=== PATIENT | male | born 1970 | race Caucasian/White ===

== ENCOUNTER 2017-09-22 16:14 | Emergency (ER) ==
[2017-09-22 16:30] VITALS: BP 120/81; TEMP 99.3; BMI 36.5
--- NOTE | 2017-09-22 16:43 | ED.PDOC ---
General ED Provider: Dr. KHADAR KWOK Chief Complaint: Extremity Pain/Injury Stated Complaint: right upper ext rash abscess Time Seen by Physician: 16:17 (seen with NO AT ALL TIMES ON BACTRIM) Mode of Arrival: Walk-In Information Source: Patient Exam Limitations: No limitations Primary Care Provider: HORACE MEHTA Nursing and Triage Documentation Reviewed and Agree: Yes Reviewed sepsis parameters & appropriate labs ordered?: Yes System Inflammatory Response Syndrome: Not Applicable Sepsis Protocol: For patient's 13 years and over: Temp is 96.8 and below OR 101 and greater Pulse >90 BPM Resp >20/minute Acutely Altered Mental Status Are patient's symptoms suggestive of a new infection, such as: -Pneumonia -Skin, Soft Tissue -Endocarditis -UTI -Bone, Joint Infection -Implantable Device -Acute Abdominal Infection -Wound Infection -Meningitis -Blood Stream Catheter Infection -Unknown System Inflammatory Response Syndrome: Not Applicable (ON BACTRIM DS X 1 DAY) Skin Complaint Exam - Skin/Soft Tissue Complaint/Exam Onset/Duration: RASH ABSCESSRIGHT UPPER ARM X 4 DAYS Timing: Constant Initial Severity: Moderate Current Severity: Moderate Character: Reports: Redness, Swelling, Painful. Denies: Raised Aggravating: Reports: Touch Alleviating: Reports: None Associated Signs and Symptoms: Reports: Tenderness, Red streaks. Denies: Fever , Chills, Itching, Drainage, Bruising, Joint swelling Recent Exposure to Others w/Similar Symptoms: No Differential Diagnoses: Abscess, Cellulitis, MRSA Review of Systems - Review Of Systems Constitutional: Reports: No symptoms Eyes: Reports: No symptoms Ears, Nose, Mouth, Throat: Reports: No symptoms Respiratory: Reports: No symptoms Cardiac: Reports: No symptoms GI: Reports: No symptoms : Reports: No symptoms Musculoskeletal: Reports: No symptoms Skin: Reports: Rash (RIGHT UPPER ARM SEE PHOTOS) Neurological: Reports: No symptoms Endocrine: Reports: No symptoms Hematologic/Lymphatic: Reports: No symptoms All Other Systems: Reviewed and Negative Past Medical History - Past Medical History Previously Healthy: Yes Endocrine: Reports: DM 2 Cardiovascular: Reports: None Respiratory: Reports: None Hematological: Reports: None Gastrointestinal: Reports: None Genitourinary: Reports: None Neuro/Psych: Reports: None Musculoskeletal: Reports: None Cancer: Reports: None - Surgical History General Surgical History: Reports: None - Family History Family History: Reports: None - Social History Smoking Status: Never smoker Hx Substance Use: No Alcohol Screening: Occasionally Physical Exam - Physical Exam Appearance: Well-appearing, No pain distress, Well-nourished Eyes: HILDA, EOMI, Conjunctiva clear ENT: Ears normal, Nose normal, Oropharynx normal Respiratory: Airway patent, Breath sounds clear, Breath sounds equal, Respirations nonlabored Cardiovascular: RRR, Pulses normal, No rub, No murmur GI/: Soft, Nontender, No masses, Bowel sounds normal, No Organomegaly Musculoskeletal: Normal strength, ROM intact, No edema, No calf tenderness Skin: Warm, Dry (20 CM RASH MACULAR PIN/ RED . SEE PHOTOS) Neurological: Sensation intact, Motor intact, Reflexes intact, Cranial nerves intact, Alert, Oriented Psychiatric: Affect appropriate, Mood appropriate Critical Care Note - Critical Care Note Total Time (mins): 0 Course - Course Vital Signs: Temp Pulse Resp BP Pulse Ox 09/22/17 16:15 99.3 F 84 20 120/81 92 L Departure - Departure Time of Disposition: 16:45 Disposition: HOME SELF-CARE Discharge Problem: Abscess Instructions: Abscess (ED) Condition: Good Pt referred to PMD for follow-up: Yes IPMP verified?: No Additional Instructions: Please call your Family Physician as soon as possible to schedule a follow-up appointment. FOLLOW THE INST GIVEN BY RISSA CHOI Allergies/Adverse Reactions: Allergies No Known Allergies Allergy (Unverified 09/22/17 16:25) Home Medications: Ambulatory Orders Aspirin [Aspirin EC] 81 mg PO DAILY 09/22/17 Atorvastatin Calcium [Lipitor] 20 mg PO BEDTIME 09/22/17 Glipizide [Glucotrol Xl] 5 mg PO DAILYWM 09/22/17 Metformin HCl 1,000 mg PO BEDTIME 09/22/17 Metformin HCl [Metformin HCl ER] 500 mg PO DAILY 09/22/17 Disposition Discussed With: Patient, Family
[2017-09-22] MEDS ORDERED: LIDOCAINE HCL 1% SDV SUBCUT STA (16:46)
[2017-09-22] MEDS ORDERED: ROCEPHIN IM STA (16:46)
== END 2017-09-22 17:37 | disposition home or self-care (01) ==
LOC: ED 16:14
DX: L02.413 Cutaneous abscess of right upper limb (principal); R21 Rash and other nonspecific skin eruption
CPT/HCPCS: 96372; 99283